=== PATIENT | female | born 1980 | race Caucasian/White ===

== ENCOUNTER 2022-09-27 10:16 | Outpatient (CLI) | payer OTHER | END 2022-09-27 10:17 | disposition home or self-care (01) | LOC: CSHMAMMO 10:16 | PROVIDERS: ATTEND Student in an Organized Health Care Education/Training Program | DX: Z12.31 Encounter for screening mammogram for malignant neoplasm of breast (principal); Z98.82 Breast implant status | CPT/HCPCS: 77063; 77067 ==

== ENCOUNTER 2023-11-27 14:07 | Outpatient (CLI) | payer BC, OTHER | END 2023-11-27 14:08 | disposition home or self-care (01) | LOC: CSHULT 14:07 | PROVIDERS: ATTEND Student in an Organized Health Care Education/Training Program | DX: R39.15 Urgency of urination (principal) | CPT/HCPCS: 76856 ==